=== PATIENT | female | born 1980 | race Two or more races ===

== ENCOUNTER → 2018-10-11 | Outpatient (CLI) | payer OTHER | END | disposition home or self-care (01) | LOC: PRENATAL 14:00 | DX: O26.892 Other specified pregnancy related conditions, second trimester (principal); O09.512 Supervision of elderly primigravida, second trimester ==

== ENCOUNTER 2018-12-19 14:50 | Outpatient (CLI) | payer OTHER | END 2018-12-19 15:30 | disposition home or self-care (01) | LOC: PRENATAL 14:50 | DX: O26.843 Uterine size-date discrepancy, third trimester (principal); O09.513 Supervision of elderly primigravida, third trimester ==

== ENCOUNTER 2019-02-25 17:36 | Inpatient (IN) | payer OTHER ==
[~2019-02-25] VITALS: Ht 165.1 cm; Wt 88.9 kg
[2019-02-25] MEDS ORDERED: PRENATAL CAPLE1 EAC1 PO (18:44)
[2019-02-25] MEDS ORDERED: IRON236 MG PO (18:45)
[2019-02-25] MEDS ORDERED: ASPIR 8181 MG PO (18:45)
[2019-02-25] MEDS ORDERED: LIPO-FLAVONOID1 EACH PO (18:46)
[2019-02-25] MEDS ORDERED: PROBIOTIC1 EAC2 PO (18:46)
[2019-03-02] MEDS ORDERED: OXYC1TAB9 PO (16:18)
[2019-03-02] MEDS ORDERED: CEFADROXIL500 MG PO (16:19)
== END 2019-03-02 16:38 | disposition home or self-care (01) | DRG 787 ==
LOC: LDR 17:36 → OB/GYN 02-27 09:57
PROVIDERS: ADMIT Obstetrics & Gynecology
PROC: 4A1HXCZ Monitoring of Products of Conception, Cardiac Rate, External Approach (ICD-10-PCS; 2019-02-25)
PROC: 3E033VJ Introduction of Other Hormone into Peripheral Vein, Percutaneous Approach (ICD-10-PCS; 2019-02-27)
PROC: 10D00Z1 Extraction of Products of Conception, Low, Open Approach (ICD-10-PCS; principal; 2019-02-27 07:00)
DX: O82 Encounter for cesarean delivery without indication (principal); O41.03X0 Oligohydramnios, third trimester, not applicable or unspecified; O61.0 Failed medical induction of labor; Z3A.40 40 weeks gestation of pregnancy; Z37.0 Single live birth

== ENCOUNTER → 2023-06-23 | Outpatient (CLI) | payer OTHER ==
[~2023-06-23] MED LIST: ASPIR 8181 MG PO; CEFADROXIL500 MG PO; IRON236 MG PO; LIPO-FLAVONOID1 EACH PO; OXYC1TAB9 PO; PRENATAL CAPLE1 EAC1 PO; PROBIOTIC1 EAC2 PO
== END | disposition home or self-care (01) ==
LOC: NST 10:34
PROVIDERS: ATTEND Obstetrics & Gynecology Gynecology
DX: Z34.83 Encounter for supervision of other normal pregnancy, third trimester (principal)

== ENCOUNTER 2023-06-29 09:16 | Inpatient (IN) | payer OTHER ==
[2023-06-23 15:06] LABS: HEMATOCRIT 32.2 % (36.0-45.00); HEMOGLOBIN 11.5 g/dL (12.0-15.00); MEAN CELL VOLUME 83.7 fL (80.00-100.00); MEAN CORPUSCULAR HEMOGLOBIN 29.8 pg (27.00-32.0); MEAN CORPUSCULAR HGB CONC 35.6 g/dl (32.0-36.0); PLATELET COUNT 235 K/uL (150-450); RED BLOOD COUNT 3.85 M/uL (4.00-6.00); RED CELL DISTRIBUTION WIDTH 13.8 % (11.5-14.5)
[2023-06-23 15:21] LABS: PH,URINE 6.5 (5.0-8.0); URINE APPEARANCE Clear; URINE BILIRRUBIN Negative (NEGATIVE); URINE BLOOD Negative; URINE COLOR Yellow; URINE GLUCOSE Negative (NEGATIVE); URINE LEUKOCYTE Negative; URINE NITRATE Negative; URINE PROTEIN Negative (NEGATIVE); URINE UROBILINOGEN 0.2 E.U./dl
[2023-06-23 15:23] LABS: URINE BACTERIA 269.5 uL (0.0-1933); URINE EPITHELIAL CELLS 73.1 uL (0.0-38.8); URINE RBC 4.1 uL (0.0-20.8); URINE WBC 7.7 uL (0.0-23.2)
[2023-06-23 15:43] LABS: INR < 0.93; PARTIAL THROMBOPLASTIN TIME 26.5 SECONDS (22.0-34.0); PROTHROMBIN TIME 9.7 SECONDS (9.0-11.5)
[2023-06-23 15:49] LABS: ALBUMIN 2.8 gm/dL (3.4-5.0); BILIRUBIN TOTAL 0.34 mg/dL (0.3-1.2); CALCIUM 9.1 mg/dL (8.5-10.1); CREATININE SERUM 0.56 mg/dL (0.55-1.02); GFR 119.3; GLOBULINA 3.5 G/DL (2.4-3.5); POTASSIUM 4.02 mEq/L (3.5-5.1); TOTAL PROTEIN 6.3 gm/dL (6.4-8.2)
[~2023-06-29] VITALS: Ht 167.6 cm; Wt 88.0 kg
[2023-06-29] MEDS ORDERED: RINGERS SOLUTION,LACTATED 1,000 ML IV SCH (09:30)
[2023-06-29] MEDS ORDERED: OXYTOCIN 10 UNITS/ML VIAL ONE (10:23)
[2023-06-29] MEDS ORDERED: ERYTHROMYCIN BASE 3.5 GM OINT...G. OP ONE (10:23)
[2023-06-29] MEDS ORDERED: CEFAZOLIN SODIUM 1,000 MG VIAL ONE (10:41)
[2023-06-29] MEDS ORDERED: OXYTOCIN 10 UNITS/ML VIAL IV ONE (11:30)
[2023-06-29] MEDS ORDERED: ERYTHROMYCIN BASE 1 GM TUBE OP ONE (11:30)
[2023-06-29] MEDS ORDERED: CEFAZOLIN SODIUM 1,000 MG VIAL IV ONE (11:30)
[2023-06-29] MEDS ORDERED: IBUprofen 600 MG TABLET PO SCH (12:00)
[2023-06-29] MEDS ORDERED: KETOROLAC TROMETHAMINE 30 MG VIAL IV SCH (12:00)
[2023-06-29] MEDS ORDERED: MORPHINE SULFATE 4 MG/ML VIAL IV SCH (13:00)
[2023-06-29] MEDS ORDERED: METOCLOPRAMIDE HCL 10 MG in DEXTROSE 5 % IN WATER 50 ML IV SCH (15:15)
[2023-06-29] MEDS ORDERED: FAMOTIDINE/PF 20 MG/2 ML VIAL IV PUSH ONE (15:15)
[2023-06-29] MEDS ORDERED: GABAPENTIN 300 MG CAPSULE PO SCH (17:00)
[2023-06-29] MEDS ORDERED: ACETAMINOPHEN 500 MG GEL..CAP PO SCH (21:01)
[2023-06-29] MEDS ORDERED: SIMETHICONE 125 MG CAPSULE PO SCH (21:15)
[2023-06-30] MEDS ORDERED: ACETAMINOPHEN 500 MG GEL..CAP PO SCH (06:00)
[2023-06-30 08:11] LABS: ALBUMIN 2.3 gm/dL (3.4-5.0); BILIRUBIN TOTAL 0.32 mg/dL (0.3-1.2); CALCIUM 8.9 mg/dL (8.5-10.1); CREATININE SERUM 0.55 mg/dL (0.55-1.02); GFR 121.8; GLOBULINA 2.9 G/DL (2.4-3.5); POTASSIUM 4.72 mEq/L (3.5-5.1); TOTAL PROTEIN 5.2 gm/dL (6.4-8.2)
[2023-06-30] MEDS ORDERED: DOCUSATE SODIUM 100MG CAP PO SCH (09:00)
[2023-06-30] MEDS ORDERED: PNV,CALCIUM 72/IRON/FOLIC ACID 1 TAB TABLET PO SCH (09:00)
[2023-06-30] MEDS ORDERED: SIMETHICONE 125 MG CAPSULE PO SCH (09:00)
[2023-06-30] MEDS ORDERED: CYCLOBENZAPRINE HCL 5 MG TABLET PO PRN (09:00)
[2023-06-30] MEDS ORDERED: IBUprofen 600 MG TABLET PO SCH (12:00)
== END 2023-07-01 13:56 | disposition home or self-care (01) | DRG 788 ==
LOC: OB/GYN 09:16 → O/R 09:16 → LDR 09:16 → O/R 11:35 → OB/GYN 13:11 → SURG 13:38 → OB/GYN 07-01 13:56
PROVIDERS: ADMIT Obstetrics & Gynecology Gynecology; ATTEND Obstetrics & Gynecology Gynecology
PROC: 4A1HXCZ Monitoring of Products of Conception, Cardiac Rate, External Approach (ICD-10-PCS; 2023-06-29)
PROC: 10D00Z1 Extraction of Products of Conception, Low, Open Approach (ICD-10-PCS; principal; 2023-06-29 09:00)
DX: O34.211 Maternal care for low transverse scar from previous cesarean delivery (principal); Z3A.39 39 weeks gestation of pregnancy; Z37.0 Single live birth; Z20.822 Contact with and (suspected) exposure to COVID-19

== ENCOUNTER 2024-11-27 08:00 | Day surgery (SDC) | payer OTHER ==
[2024-11-26 11:13] VITALS: BP 138/85
[2024-11-26 11:42] LABS: URINE APPEARANCE Clear; URINE BILIRRUBIN Negative (NEGATIVE); URINE BLOOD Negative; URINE COLOR Yellow; URINE GLUCOSE Negative (NEGATIVE); URINE KETONE Negative (NEGATIVE); URINE LEUKOCYTE Negative; URINE NITRATE Negative; URINE PROTEIN Negative (NEGATIVE); URINE UROBILINOGEN 0.2 E.U./dl
[2024-11-26 11:45] LABS: BASO % 0.9 % (0.1-1.2); EOS # 0.29 (0.04-0.54); EOS % 3.7 % (0.7-7.0); LYMPH # 2.75 (1.18-3.74); LYMPH % 34.8 % (19.3-53.1); MEAN PLATELET VOLUME 10.70 fl (9.4-12.4); MONO # 0.67 (0.24-0.82); MONO % 8.5 % (4.7-12.5); NEUT # 4.12 (1.56-6.13); NEUT % 52.0 % (34.0-71.1); RED CELL DISTRIBUTION WIDTH 13.6 % (11.6-14.4)
[2024-11-26 11:50] LABS: URINE BACTERIA 16.7 uL (0.0-1933); URINE EPITHELIAL CELLS 5.6 uL (0.0-38.8)
[2024-11-26 11:51] LABS: URINE CAST 0.00 uL (0.0-1.40); URINE RBC 0.8 uL (0.0-20.8); URINE WBC 0.4 uL (0.0-23.2)
[2024-11-26 12:29] LABS: INR 1.01
[2024-11-26 12:38] LABS: COVID-19 AG NEGATIVE (NEGATIVE)
[2024-11-26 12:42] LABS: ALT/SGPT 16.0 U/L (12-78); AST/SGOT 12.0 U/L (15-37); BILIRUBIN TOTAL 0.53 mg/dL (0.3-1.2); BUN CREA RATIO 20.0 (7.0-25.0); CREATININE SERUM 0.66 mg/dL (0.55-1.02); GFR 98.21; GLOBULINA 3.5 G/DL (2.4-3.5); GLUCOSE FASTING 73.0 mg/dL (65-100); OSMOLALITY SERUM 274.0 MOSM/KG (275-295)
[~2024-11-27] VITALS: Ht 167.6 cm; Wt 63.5 kg
[~2024-11-27 08:00] MED LIST changes: +LEXAPRO20 MG
[2024-11-27] MEDS ORDERED: CHLORHEXIDINE GLUCONATE 120 ML BOTTLE TOP ONE (12:21)
[2024-11-27] MEDS ORDERED: POVIDONE-IODINE 118 ML BOTT TOP ONE (12:21)
== END 2024-11-27 16:40 | disposition home or self-care (01) ==
LOC: CIR.AMB 08:00
PROVIDERS: ATTEND Obstetrics & Gynecology Gynecology
DX: N93.8 Other specified abnormal uterine and vaginal bleeding (principal); N84.0 Polyp of corpus uteri